=== PATIENT | male | born 1965 | race Caucasian/White ===

== ENCOUNTER 2019-01-22 11:28 | Observation (INO) | payer OTHER ==
--- NOTE | 2019-01-22 11:53 | PDOC ---
History of Present Illness - General Chief Complaint: Syncope/Near Syncope Stated Complaint: HEAD INJURY Time Seen by Provider: 01/22/19 11:47 Past History - Past Medical History Allergies/Adverse Reactions: Allergies Allergy/AdvReac Type Severity Reaction Status Date / Time No Known Allergies Allergy Verified 01/22/19 11:38 COPD: No HTN: Yes - Psycho Social/Smoking Cessation Hx Smoking History: Never smoked *Physical Exam - Vital Signs Last Vital Signs Temp Pulse Resp BP Pulse Ox 98 F 96 H 18 143/93 98 01/22/19 11:35 01/22/19 11:35 01/22/19 11:35 01/22/19 11:35 01/22/19 11:35
[2019-01-22 12:42] LABS: BASO % 2.2 % (0-2.0); EOS % 1.6 % (0-4.5); HEMATOCRIT 48.8 % (35.4-49); HEMOGLOBIN 17.8 GM/dL (11.7-16.9); LYMPH % 21.5 % (8-40); MCH 35.9 pg (25.7-33.7); MCHC 36.5 g/dl (32.0-35.9); MEAN CELL VOLUME 98.5 fl (80-96); MEAN PLT VOLUME 8.8 fl (7.5-11.1); MONO % 9.7 % (3.8-10.2); PLATELET COUNT 171 K/MM3 (134-434); RBC 4.96 M/mm3 (4.00-5.60); RDW 15.2 % (11.9-15.9); WHITE BLOOD COUNT 6.4 K/mm3 (4.0-10.0)
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
[2019-01-22 13:23] LABS: ALBUMIN 3.6 g/dl (3.4-5.0); ALK PHOS 124 U/L (45-117); ANION GAP 6 MMOL/L (8-16); BILIRUBIN,TOTAL 0.8 mg/dL (0.2-1); BLOOD UREA NITROGEN 8.8 mg/dL (7-18); CALCIUM 9.3 mg/dL (8.5-10.1); CHLORIDE 103 mmol/L (98-107); CO2 28 mmol/L (21-32); CREATININE 0.8 mg/dL (0.55-1.3); GLUCOSE,RANDOM 94 mg/dL (74-106); POTASSIUM 4.5 mmol/L (3.5-5.1); SGOT/AST 62 U/L (15-37); SGPT/ALT 55 U/L (13-61); SODIUM 137 mmol/L (136-145); TOT PROT 8.5 g/dl (6.4-8.2)
[2019-01-22 13:43] LABS: PHOSPHOROUS 2.4 mg/dL (2.5-4.9)
[2019-01-22] MEDS ORDERED: LACTATED RINGERS SOLUTION 1,000 ML/1,000 ML INFUS.BAG IV STA (13:49)
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
[2019-01-22] MEDS ORDERED: LIDOCAINE HCL 1%, 10 MG/ML (20ML VIAL) ONE ×2 (14:43→14:44)
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
[2019-01-22] MEDS ORDERED: SODIUM CHLORIDE 1,000 ML IV SCH (16:00)
[2019-01-22] MEDS ORDERED: ACETAMINOPHEN 325 MG TABLET (FP) PO PRN (16:17)
[2019-01-22] MEDS ORDERED: ALBUTEROL SO4 0.083% IH SOL 2.5 MG/3 ML VIAL.NEB. NEB PRN (16:19)
[2019-01-22] MEDS ORDERED: chlordiazePOXIDE HCL 25 MG CAPSULE PO PRN (16:20)
[2019-01-22 19:07] VITALS: BMI 30.9
[2019-01-22] MEDS: HEPARIN NA (PORCINE) 5,000 UNITS/ML 1ML VIAL SQ SCH (22:45)
[2019-01-23 06:19] LABS: HEMATOCRIT 46.1 % (35.4-49); HEMOGLOBIN 15.9 GM/dL (11.7-16.9); MCH 33.3 pg (25.7-33.7); MCHC 34.6 g/dl (32.0-35.9); MEAN CELL VOLUME 96.4 fl (80-96); MEAN PLT VOLUME 8.4 fl (7.5-11.1); PLATELET COUNT 138 K/MM3 (134-434); RBC 4.78 M/mm3 (4.00-5.60); RDW 14.6 % (11.9-15.9); WHITE BLOOD COUNT 4.2 K/mm3 (4.0-10.0)
[2019-01-23 07:43] LABS: BILIRUBIN,TOTAL 0.7 mg/dL (0.2-1); BLOOD UREA NITROGEN 9.8 mg/dL (7-18); CALCIUM 8.9 mg/dL (8.5-10.1); CREATININE 0.7 mg/dL (0.55-1.3); MAGNESIUM 1.9 mg/dL (1.8-2.4); POTASSIUM 4.2 mmol/L (3.5-5.1); TOT PROT 6.9 g/dl (6.4-8.2)
[2019-01-23] MEDS: HEPARIN NA (PORCINE) 5,000 UNITS/ML 1ML VIAL SQ SCH ×2 (10:49→21:23)
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
--- NOTE | 2019-01-23 17:07 | EKG ---
Test Reason : Blood Pressure : / mmHG Vent. Rate : 090 BPM Atrial Rate : 090 BPM P-R Int : 138 ms QRS Dur : 074 ms QT Int : 352 ms P-R-T Axes : 034 018 026 degrees QTc Int : 430 ms NORMAL SINUS RHYTHM NORMAL ECG NO PREVIOUS ECGS AVAILABLE Confirmed by KHLOE TORRES MD ([id number]) on 01/23/2019 5:06:49 PM Referred By: Confirmed By:KHLOE TORRES MD
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
[2019-01-23] MEDS ORDERED: guaiFENesin/D-METHORPHAN HB 10 ML UNIT-DOSE CUPS PO ONE (22:00)
[2019-01-24] MEDS: amLODIPine BESYLATE 2.5 MG TABLET (FP) PO SCH ×2 (08:42→10:37)
[2019-01-24] MEDS ORDERED: MAG HYDROX/AL HYDROX/SIMETH 30 ML UNIT-DOSE CUP PO PRN (08:44)
[2019-01-24 09:09] LABS: BASO % 0.8 % (0-2.0); EOS % 2.8 % (0-4.5); HEMATOCRIT 44.5 % (35.4-49); HEMOGLOBIN 15.6 GM/dL (11.7-16.9); LYMPH % 28.8 % (8-40); MCHC 35.1 g/dl (32.0-35.9); MEAN CELL VOLUME 99.7 fl (80-96); MEAN PLT VOLUME 9.1 fl (7.5-11.1); MONO % 10.8 % (3.8-10.2); NEUT % 56.8 % (42.8-82.8); PLATELET COUNT 145 K/MM3 (134-434); RBC 4.46 M/mm3 (4.00-5.60); RDW 14.8 % (11.9-15.9); WHITE BLOOD COUNT 4.6 K/mm3 (4.0-10.0)
[2019-01-24 09:35] LABS: BILIRUBIN,TOTAL 1.1 mg/dL (0.2-1); CALCIUM 9.1 mg/dL (8.5-10.1); CREATININE 0.7 mg/dL (0.55-1.3); POTASSIUM 4.1 mmol/L (3.5-5.1)
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
[2019-01-24] MEDS: HEPARIN NA (PORCINE) 5,000 UNITS/ML 1ML VIAL SQ SCH (10:41)
--- NOTE | 2019-01-24 10:42 | PN ---
Progress Note, Physician History of Present Illness: Denies recurrent near or true syncope. No events on telemetry. - Current Medication List Current Medications: Active Medications Acetaminophen (Tylenol -) 650 mg PO Q4H PRN PRN Reason: PAIN LEVEL 1-5 Last Admin: 01/22/19 20:10 Dose: 650 mg Albuterol Sulfate (Ventolin 0.083% Nebulizer Soln -) 1 amp NEB Q6H PRN PRN Reason: SHORT OF BREATH/WHEEZING Last Admin: 01/23/19 20:30 Dose: 1 amp Amlodipine Besylate (Norvasc -) 2.5 mg PO DAILY [facility] Last Admin: 01/24/19 10:37 Dose: Not Given Budesonide/Formoterol Fumarate (Symbicort 80/4.5mcg -) 2 puff IH BID [facility] Chlordiazepoxide HCl (Librium -) 25 mg PO Q6H PRN PRN Reason: WITHDRAWAL(CONT SUBST) Heparin Sodium (Porcine) (Heparin -) 5,000 unit SQ BID [facility] Last Admin: 01/24/19 10:41 Dose: 5,000 unit Sodium Chloride (Normal Saline -) 1,000 mls @ 75 mls/hr IV ASDIR [facility] Last Admin: 01/23/19 10:48 Dose: 75 mls/hr - Objective Vital Signs: Vital Signs Temperature 98.0 F 01/24/19 06:00 Pulse Rate 71 01/24/19 06:00 Respiratory Rate 20 01/24/19 06:00 Blood Pressure 142/70 01/24/19 06:00 O2 Sat by Pulse Oximetry (%) 99 01/23/19 21:00 Constitutional: Yes: No Distress, Calm Neck: Yes: Supple Cardiovascular: Yes: Regular Rate and Rhythm Respiratory: Yes: Regular, CTA Bilaterally Gastrointestinal: Yes: Normal Bowel Sounds, Soft Edema: No Labs: CBC, BMP 01/24/19 08:10 01/24/19 08:10 - ....Imaging Cat Scan: Report Reviewed (chest CT: Hepatic steatosis, coronary calcification, no infiltrates or effusions) Assessment/Plan - Problems (1) ETOH abuse Assessment/Plan: Nearly daily 7-8 beers "since I was 15 years old". Says he has been told by his brother he needs to quit. Contributes to pt's frequent syncopal episodes. Librium Detox protocol. F/u LFTs. Code(s): F10.10 - ALCOHOL ABUSE, UNCOMPLICATED (2) Laceration of head Code(s): S01.91XA - LACERATION W/O FOREIGN BODY OF UNSP PART OF HEAD, INIT (3) Tussive syncope Assessment/Plan: Telemetry: r/o arrhythmia. Pt says coughing always precedes the syncopal episodes, which have occurred several times this year. He is an alcoholic. EKG: NSR; normal study. F/u ECHO for LVEF, chamber sizes, valve status. Carotid artery US shows no sig stenosis Maintain hydration Orhostatic vital signs. Detox protocol, BD as needed, outpatient PFTs Code(s): R05 - COUGH (4) History of bilateral knee arthroplasty Assessment/Plan: "metal in both knees" for "arthritis". Code(s): Z96.653 - PRESENCE OF ARTIFICIAL KNEE JOINT, BILATERAL (5) CAD with coronary calcifications Norvasc 2.5 qd as tolerated, add ASA 81 qd
[2019-01-24] MEDS ORDERED: BUDESONIDE/FORMETEROL FUMARATE 80/4.5 mcg INHALER IH SCH (11:00)
[2019-01-24] MEDS ORDERED: PT OWN MED DRAWER 7, Y5N ONE (11:05)
--- NOTE | 2019-01-24 12:29 | ECHO ---
Name: MARIMAR CURRAN Exam:Adult Echocardiogram Study Date: 01/24/2019 08:50 AM Age: 53 yrs Reason For Study: SYNCOPE Height: 67 in Weight: 200 lb BSA: 2.0 m2 MMode/2D Measurements & Calculations IVSd: 1.1 cm Ao root diam: 2.7 cm LVIDd: 4.5 cm LA dimension: 3.6 cm LVIDs: 3.5 cm LVPWd: 1.1 cm EDV(Teich): 91.7 ml LVOT diam: 2.0 cm ESV(Teich): 49.9 ml LAV (MOD-bp): 29.4 ml Doppler Measurements & Calculations MV E max doug: 65.5 cm/sec Ao V2 max: 133.0 cm/sec MV A max doug: 80.5 cm/sec Ao max P.1 mmHg MV E/A: 0.81 MV dec time: 0.15 sec NELLY(V,D): 2.0 cm2 LV V1 max P.9 mmHg TR max doug: 192.7 cm/sec LV V1 max: 85.4 cm/sec TR max P.9 mmHg PA V2 max: 108.6 cm/sec Med Peak E' Doug: 7.2 cm/sec PA max P.7 mmHg Med E/e': 9.1 Lat Peak E' Doug: 9.6 cm/sec Lat E/e': 6.8 PI Vmax: 103.2 cm/sec Procedure A complete two-dimensional transthoracic echocardiogram was performed (2D, M-mode, Doppler and color flow Doppler). Technically limited study. Left Ventricle The left ventricle is normal in size. Left ventricular systolic function is low normal. Ejection Frac tion = 50-55%. No regional wall motion abnormalities noted. Right Ventricle The right ventricle is not well visualized. Atria The left atrial size is normal. Right atrial size is normal. Mitral Valve The mitral valve is normal in structure and function. There is no mitral regurgitation noted. Tricuspid Valve The tricuspid valve is normal in structure and function. No tricuspid regurgitation. Aortic Valve There is mild aortic sclerosis.;. No aortic regurgitation is present. Pulmonic Valve The pulmonic valve is not well visualized. Great Vessels The aortic root is normal size. Pericardium/Pleura Small pericardial effusion (<1cm). Interpretation Summary The left ventricle is normal in size. Left ventricular systolic function is low normal. No regional wall motion abnormalities noted. Ejection Fraction = 50-55%. The left atrial size is normal. Right atrial size is normal. There is mild aortic sclerosis. No significant valvular regurgitations are ssen Small pericardial effusion (<1cm) Prevous study is not available for comparison Pedro Lion MD 01/24/2019 12:28 PM
--- NOTE | 2019-01-24 14:10 | PN ---
Physical Exam: SUBJECTIVE: Patient seen and examined OBJECTIVE: ct with extensive atherosclerotic coronary artery calcifications - LAD coronary artery Vital Signs Period Temp Pulse Resp BP Sys/Tran Pulse Ox Last 24 Hr 98.0 F-98.7 F 71-76 20-20 135-148/70-102 99 Laboratory Results - last 24 hr 01/24/19 01/24/19 08:10 08:10 WBC 4.6 RBC 4.46 Hgb 15.6 Hct 44.5 MCV 99.7 H MCH 35.0 H MCHC 35.1 RDW 14.8 Plt Count 145 MPV 9.1 Absolute Neuts (auto) 2.6 Neutrophils % 56.8 Lymphocytes % 28.8 D Monocytes % 10.8 H Eosinophils % 2.8 Basophils % 0.8 Nucleated RBC % 0 Sodium 137 Potassium 4.1 Chloride 105 Carbon Dioxide 26 Anion Gap 6 L BUN 10.0 Creatinine 0.7 Est GFR (CKD-EPI)AfAm 123.13 Est GFR (CKD-EPI)NonAf 106.24 Random Glucose 88 Calcium 9.1 Magnesium 2.0 Total Bilirubin 1.1 H AST 40 H ALT 46 Alkaline Phosphatase 101 Total Protein 7.0 Albumin 3.0 L Active Medications Generic Name Dose Route Start Last Admin Trade Name Freq PRN Reason Stop Dose Admin Acetaminophen 650 mg 01/22/19 16:17 01/22/19 20:10 Tylenol - PO 650 mg Q4H PRN Administration PAIN LEVEL 1-5 Albuterol Sulfate 1 amp 01/22/19 16:19 01/23/19 20:30 Ventolin 0.083% Nebulizer Soln - NEB 1 amp Q6H PRN Administration SHORT OF BREATH/WHEEZING Amlodipine Besylate 2.5 mg 01/24/19 10:00 01/24/19 10:37 Norvasc - PO Not Given DAILY [facility] Budesonide/Formoterol Fumarate 2 puff 01/24/19 11:00 01/24/19 11:06 Symbicort 80/4.5mcg - IH 2 puff BID [facility] Administration Chlordiazepoxide HCl 25 mg 01/22/19 16:20 Librium - PO Q6H PRN WITHDRAWAL(CONT SUBST) Heparin Sodium (Porcine) 5,000 unit 01/22/19 22:00 01/24/19 10:41 Heparin - SQ 5,000 unit BID [facility] Administration Sodium Chloride 1,000 mls @ 75 mls/hr 01/22/19 16:00 01/23/19 10:48 Normal Saline - IV 75 mls/hr [facility] Administration ASSESSMENT/PLAN: Problem List - Problems (1) ETOH abuse Code(s): F10.10 - ALCOHOL ABUSE, UNCOMPLICATED (2) Syncope and collapse Code(s): R55 - SYNCOPE AND COLLAPSE (3) Tussive syncope Code(s): R05 - COUGH (4) Prophylactic measure Code(s): Z29.9 - ENCOUNTER FOR PROPHYLACTIC MEASURES, UNSPECIFIED (5) Laceration of head Code(s): S01.91XA - LACERATION W/O FOREIGN BODY OF UNSP PART OF HEAD, INIT
[2019-01-24] MEDS ORDERED: metoPROLOL SUCCINATE 25 MG TAB.SR.24H (FP) PO SCH (15:15)
[2019-01-24] MEDS ORDERED: ASPIRIN COATED 81 MG TABLET.EC PO SCH (15:15)
--- NOTE | 2019-01-24 15:41 | DS ---
Physical Exam: SUBJECTIVE: Patient seen and examined OBJECTIVE: Vital Signs Period Temp Pulse Resp BP Sys/Tran Pulse Ox Last 24 Hr 98.0 F-98.7 F 71-78 20-20 135-157/70-111 97-99 PHYSICAL EXAM GENERAL: The patient is awake, alert, and fully oriented, in no acute distress. HEAD: Normal with no signs of trauma. EYES: PERRL, extraocular movements intact, sclera anicteric, conjunctiva clear. ENT: Ears normal, nares patent, oropharynx clear without exudates, moist mucous membranes. NECK: Trachea midline, full range of motion, supple. LUNGS: Breath sounds equal, clear to auscultation bilaterally, no wheezes, no crackles, no accessory muscle use. HEART: Regular rate and rhythm, S1, S2 without murmur, rub or gallop. ABDOMEN: Soft, nontender, nondistended, normoactive bowel sounds, no guarding, no rebound, no hepatosplenomegaly, no masses. EXTREMITIES: 2+ pulses, warm, well-perfused, no edema. NEUROLOGICAL: Cranial nerves II through XII grossly intact. Normal speech, gait not observed. PSYCH: Normal mood, normal affect. SKIN: Warm, dry, normal turgor, no rashes or lesions noted. LABS Laboratory Results - last 24 hr 01/24/19 01/24/19 08:10 08:10 WBC 4.6 RBC 4.46 Hgb 15.6 Hct 44.5 MCV 99.7 H MCH 35.0 H MCHC 35.1 RDW 14.8 Plt Count 145 MPV 9.1 Absolute Neuts (auto) 2.6 Neutrophils % 56.8 Lymphocytes % 28.8 D Monocytes % 10.8 H Eosinophils % 2.8 Basophils % 0.8 Nucleated RBC % 0 Sodium 137 Potassium 4.1 Chloride 105 Carbon Dioxide 26 Anion Gap 6 L BUN 10.0 Creatinine 0.7 Est GFR (CKD-EPI)AfAm 123.13 Est GFR (CKD-EPI)NonAf 106.24 Random Glucose 88 Calcium 9.1 Magnesium 2.0 Total Bilirubin 1.1 H AST 40 H ALT 46 Alkaline Phosphatase 101 Total Protein 7.0 Albumin 3.0 L HOSPITAL COURSE: Date of Admission:01/22/19 Date of Discharge: 01/24/19 Discharge Summary Problems reviewed: Yes Reason For Visit: SYNCOPE AND COLLAPSE Current Active Problems ETOH abuse (Acute) History of bilateral knee arthroplasty (Acute) Laceration of head (Acute) Prophylactic measure (Acute) Syncope and collapse (Acute) Tussive syncope (Acute) Condition: Improved - Instructions Diet, Activity, Other Instructions: Mr. Holbrook: You will be discharged home today. You were admitted for syncope (falls) and you obtained a head laceration. Please see your primary care doctor for removal of your stables in 7 more days. You can also return to the ED and have them removed. During your stay we did a chest CT that showed extensive athresclerotic disease in your left coronary artery. What is athresclerotic disease? It is build up o cholesterol plaque in the [place] of the arteries that obstruct blood flow. You will be sent home with Aspirin 81mg ONCE per day, Lipitor 80mg ONCE per day and Toprol 25mg once per day YOU WILL NEED A STRESS TEST. CALL DR CORDON TO ARRANGE ONE. HIS OFFICE NUMBER IS ENCLOSED. Please follow up with the pulmonoloigst (Dr. Mallory). There is help for your alcohol drinking. Please follow up at [facility]. Information enclosed. Thank you for allowing us to care for you. Referrals: Anmol Mallory MD [Staff Physician] - Ananth Cordon MD [Staff Physician] - Tori Fortune DO [Staff Physician] - Disposition: HOME - Home Medications Comprehensive Discharge Medication List: Ambulatory Orders Aspirin Coated [Ecotrin -] 81 mg PO DAILY #120 tablet.ec 01/24/19 Atorvastatin Calcium 80 mg PO DAILY #120 tablet 01/24/19 Budesonide/Formeterol Fumarate [SYMBICORT 80/4.5mcg -] 2 puff IH BID #1 inhaler 01/24/19 Problem List - Problems (1) ETOH abuse Code(s): F10.10 - ALCOHOL ABUSE, UNCOMPLICATED (2) Syncope and collapse Code(s): R55 - SYNCOPE AND COLLAPSE (3) Tussive syncope Code(s): R05 - COUGH (4) Prophylactic measure Code(s): Z29.9 - ENCOUNTER FOR PROPHYLACTIC MEASURES, UNSPECIFIED (5) Laceration of head Code(s): S01.91XA - LACERATION W/O FOREIGN BODY OF UNSP PART OF HEAD, INIT - Discharge Referral Referred to [facility] No
[2019-01-24 15:48] VITALS: PULSE 95; TEMP 98.7
[2019-01-24 16:30] VITALS: BP 125/93
== END 2019-01-24 16:31 | disposition home or self-care (01) ==
LOC: JER 11:28 → JERBED 13:19 → J4W 19:36
PROVIDERS: ADMIT Internal Medicine; ATTEND Nurse Practitioner Family
PROC: 0HQ0XZZ Repair Scalp Skin, External Approach (ICD-10-PCS; principal; 2019-01-22)
PROC: 3E0337Z Introduction of Electrolytic and Water Balance Substance into Peripheral Vein, Percutaneous Approach (ICD-10-PCS; 2019-01-22)
PROC: 3E013GC Introduction of Other Therapeutic Substance into Subcutaneous Tissue, Percutaneous Approach (ICD-10-PCS; 2019-01-22)
PROC: 3E0F7GC Introduction of Other Therapeutic Substance into Respiratory Tract, Via Natural or Artificial Opening (ICD-10-PCS; 2019-01-22)
DX: R55 Syncope and collapse (principal); S01.91XA Laceration without foreign body of unspecified part of head, initial encounter; W18.39XA Other fall on same level, initial encounter; Y93.89 Activity, other specified; Y92.89 Other specified places as the place of occurrence of the external cause; R05 Cough; I10 Essential (primary) hypertension; F10.10 Alcohol abuse, uncomplicated; Z29.8 Encounter for other specified prophylactic measures; Z96.653 Presence of artificial knee joint, bilateral; Z87.828 Personal history of other (healed) physical injury and trauma
CPT/HCPCS: 12002-25; 36415; 70450-TC; 71046-TC-FY; 71250-TC; 72125-TC; 80053; 80061; 82550; 82553; 82607; 82746; 83721; 83735; 84100; 84443; 84484; 85025; 85027; 93005; 93010; 93306-TC; 93880-TC; 94640; 96360; 96372; 99283-25; G0378; J1644; J7030

== ENCOUNTER 2019-01-28 11:09 | Emergency (ER) | payer OTHER ==
--- NOTE | 2019-01-28 11:30 | PDOC ---
Rapid Medical Evaluation Medical Evaluation: Allergies Allergy/AdvReac Type Severity Reaction Status Date / Time No Known Allergies Allergy Verified 01/22/19 11:38 I have performed a brief in-person evaluation of this patient. The patient presents with a chief complaint of: here for vijaya removal from posterior scalp; had vijaya last week Pertinent physical exam findings: In nad, wound healed I have ordered the following: Nothing The patient will proceed to the ED for further evaluation. 01/28/19 11:30
[2019-01-28 11:32] VITALS: BP 142/86; PULSE 99; TEMP 98; BMI 29.7
--- NOTE | 2019-01-28 11:41 | PDOC ---
Suture Removal/Wound Check HPI - History of Present Illness Chief Complaint: Suture/Staple Removal(Here) Stated Complaint: STICHES REMOVAL Time Seen by Provider: 01/28/19 11:29 History Source: Yes: Patient Exam Limitations: Yes: No Limitations Past History - Past Medical History Allergies/Adverse Reactions: Allergies Allergy/AdvReac Type Severity Reaction Status Date / Time No Known Allergies Allergy Verified 01/28/19 11:32 Home Medications: Ambulatory Orders Aspirin Coated [Ecotrin -] 81 mg PO DAILY #120 tablet.ec 01/24/19 Atorvastatin Calcium 80 mg PO DAILY #120 tablet 01/24/19 Budesonide/Formeterol Fumarate [SYMBICORT 80/4.5mcg -] 2 puff IH BID #1 inhaler 01/24/19 COPD: No HTN: Yes - Surgical History Orthopedic Surgery: (b/l knee repair with metal plates) - Psycho Social/Smoking Cessation Hx Smoking History: Never smoked Hx Alcohol Use: Yes (6-7 beers a day) Drug/Substance Use Hx: No Suture Removal/Wound Check PE - Physical Exam Laceration/Wound Check Symptoms: reports: None, Improved, Resolved. denies: Pain, Fever, Chills, Redness, Discharge, Bleeding Location of Laceration/Wound: left: Head (L posterior scalp, wound healed well) *Physical Exam - Vital Signs Last Vital Signs Temp Pulse Resp BP Pulse Ox 98 F 99 H 18 142/86 99 01/28/19 11:29 01/28/19 11:29 01/28/19 11:29 01/28/19 11:29 01/28/19 11:29 Medical Decision Making - Medical Decision Making 53 y/o M presents for staple removal s/p lac repair to posterior scalp last week. Patient denies pain, fever, discharge. States is otherwise feeling well and has no new complaints 5 vijaya removed stable for dc 01/28/19 11:39 Discharge - Discharge Information Problems reviewed: Yes Clinical Impression/Diagnosis: Removal of staple Condition: Good Disposition: HOME - Admission No - Additional Discharge Information Prescription Drug Monitoring Program (I-STOP) results: I-STOP not reviewed - Follow up/Referral - Patient Discharge Instructions Patient Printed Discharge Instructions: DI for Suture Removal - Post Discharge Activity
== END 2019-01-28 11:52 | disposition home or self-care (01) ==
LOC: JERFT 11:09
DX: Z48.817 Encounter for surgical aftercare following surgery on the skin and subcutaneous tissue (principal); Z48.02 Encounter for removal of sutures
CPT/HCPCS: 99281-25

== ENCOUNTER 2019-04-01 10:09 | Emergency (ER) | payer OTHER ==
[2019-04-01 10:18] VITALS: BP 160/100; PULSE 102; TEMP 98.1; BMI 29.7
--- NOTE | 2019-04-01 10:56 | PDOC ---
History of Present Illness - General Chief Complaint: Rash Stated Complaint: EAR PAIN/ LOWER AND LEG RASH Time Seen by Provider: 04/01/19 10:20 History Source: Patient Exam Limitations: No Limitations Past History - Travel Traveled outside of the country in the last 30 days: No Close contact w/someone who was outside of country & ill: No - Past Medical History Allergies/Adverse Reactions: Allergies Allergy/AdvReac Type Severity Reaction Status Date / Time No Known Allergies Allergy Verified 04/01/19 10:14 Home Medications: Ambulatory Orders Ciprofloxacin HCl/Dexameth [Ciprodex Otic Suspension] 4 drop OD BID #1 bottle Nystatin/Triamcinolone Top Cr [Mycolog II -] 1 applic TP BID #1 tube 04/01/19 COPD: No HTN: Yes - Surgical History Orthopedic Surgery: (b/l knee repair with metal plates) - Psycho Social/Smoking Cessation Hx Smoking History: Never smoked Hx Alcohol Use: Yes (6-7 DAILY) Drug/Substance Use Hx: No Review of Systems - Review of Systems Able to Perform ROS?: Yes Comments:: 04/01/19 15:03 CONSTITUTIONAL: Absent: fever, chills, diaphoresis, generalized weakness, malaise, loss of appetite HEENT: Present: Right ear pain absent: rhinorrhea, nasal congestion, throat pain, throat swelling, difficulty swallowing, mouth swelling, ear pain, eye pain, visual Changes SKIN: Present: Rash Absent: itching, pallor NEUROLOGIC: Absent: headache, focal weakness or paresthesias, dizziness, unsteady gait, seizure, mental status changes, bladder or bowel incontinence PSYCHIATRIC: Absent: anxiety, depression, suicidal or homicidal ideation, hallucinations. Is the patient limited Togolese proficient: No *Physical Exam - Vital Signs Last Vital Signs Temp Pulse Resp BP Pulse Ox 98.1 F 102 H 18 160/100 100 04/01/19 10:14 04/01/19 10:14 04/01/19 10:14 04/01/19 10:14 04/01/19 10:14 - Physical Exam 04/01/19 15:05 GENERAL: The patient is awake, alert, and fully oriented, in no acute distress. HEAD: Normal with no signs of trauma. EYES: Pupils equal, round and reactive to light, extraocular movements intact, sclera anicteric, conjunctiva clear. HEENT: No nasal congestion or rhinorrhea. No sinus Tenderness. Mucous membranes are moist. No tonsillar erythema, exudate or edema. Uvula is midline. No TM bulging , dullness or erythema. Right ear canal with minimal otorrhea. EXTREMITIES: Normal range of motion, no edema. NEUROLOGICAL: Normal speech, normal gait. PSYCH: Normal mood, normal affect. SKIN: Circular rashes present to the right hip into the right groin, flaking. Warm, Dry, normal turgor, no rashes or lesions noted. Medical Decision Making - Medical Decision Making 04/01/19 15:06 The patient is a 53-year-old male no past medical history presents the ER today with right ear pain and a rash to his right leg. He states both have been there for about a month. He notes that his ear is painful and it hurts to touch the tragus. His rashes on his right leg extending into his right groin. He has not tried any medication for the rash. Denies fevers, chills, difficulty hearing, sore throat. A/P: Rash, otitis externa. On exam patient with a clinical otitis externa in the right ear canal. Will treat with medicated drops. Rash is circular in nature from the groin to the right hip. Consistent with a jock itch rash. We will treat with an antifungal cream. Refer patient to primary care for further management of his symptoms. Discharge home I discussed the physical exam findings, ancillary test results and final diagnoses with the patient. I answered all of the patient's questions. The patient was satisfied with the care received and felt comfortable with the discharge plan and treatment plan. The Patient agrees to follow up with the primary care physician/specialist within 24-72 hours. Return precautions were given. Discharge - Discharge Information Problems reviewed: Yes Clinical Impression/Diagnosis: Jock itch Otitis externa Qualifiers: Otitis externa type: unspecified type Chronicity: acute Laterality: right Qualified Code(s): H60.501 - Unspecified acute noninfective otitis externa, right ear Condition: Stable Disposition: HOME - Admission No - Additional Discharge Information Prescriptions: Ciprofloxacin HCl/Dexameth [Ciprodex Otic Suspension] 4 drop OD BID #1 bottle Nystatin/Triamcinolone Top Cr [Mycolog II -] 1 applic TP BID #1 tube - Follow up/Referral Referrals: Arnulfo Green [Primary Care Provider] - - Patient Discharge Instructions Patient Printed Discharge Instructions: DI for Otitis Externa, DI for Jock Itch Additional Instructions: You were seen for your rash and ear pain today. You have an infection of the ear canal. Please use the eardrops as directed to help with the pain. You may take Motrin as well. Follow the directions on the bottle. You also have jock itch or a fungal rash on your leg. Please use the cream twice a day until your symptoms go away. If it is not improving please follow-up with dermatology. Referral has been provided. Return to the ER for any new or worsening symptoms. - Post Discharge Activity Work/Back to School Note: Back to Work
== END 2019-04-01 11:08 | disposition home or self-care (01) ==
LOC: JERFT 10:09
DX: H60.501 Unspecified acute noninfective otitis externa, right ear (principal); B35.6 Tinea cruris
CPT/HCPCS: 99282-25

== ENCOUNTER 2020-01-24 11:04 | Emergency (ER) | payer BC, OTHER ==
[2020-01-24 11:12] VITALS: BP 166/100; PULSE 100; TEMP 98.9; BMI 34.4
[2020-01-24] MEDS ORDERED: IBUPROFEN 600 MG TABLET (FP) PO ONE ×2 (12:04→12:07)
== END 2020-01-24 12:48 | disposition home or self-care (01) ==
LOC: JERFT 11:04
DX: S89.91XA Unspecified injury of right lower leg, initial encounter (principal)
CPT/HCPCS: 73562-TC-RT-FY; 99283-25

== ENCOUNTER 2020-06-06 18:16 | Inpatient (IN) | payer BC, OTHER ==
[2020-06-06 18:45] VITALS: BMI 34.9
[2020-06-06] MEDS ORDERED: LACTATED RINGERS SOLUTION 1000 ML INFUS.BAG IV ONE (19:20)
[2020-06-06] MEDS ORDERED: ACETAMINOPHEN 1000 MG/100 ML VIAL (NON FORMULARY) IVPB ONE (19:20)
[2020-06-06] MEDS ORDERED: ACETAMINOPHEN INJECTION 100 ML IVPB ONE (19:32)
[2020-06-06 20:35] LABS: INR 1.15 (0.83-1.09); PROTHROMBIN TIME (PATIENT) 14.1 SEC (9.7-13.0)
[2020-06-06 20:51] LABS: CHLORIDE 105 mmol/L (98-107); POTASSIUM 3.7 mmol/L (3.5-5.1); SODIUM 137 mmol/L (136-145)
[2020-06-06 20:53] LABS: ANION GAP 8 MMOL/L (8-16); BLOOD UREA NITROGEN 10.2 mg/dL (7-18); CO2 25 mmol/L (21-32); GLUCOSE,RANDOM 91 mg/dL (74-106)
[2020-06-06 20:54] LABS: ALBUMIN 3.4 g/dl (3.4-5.0)
[2020-06-06 20:56] LABS: SGPT/ALT 52 U/L (13-61)
[2020-06-06 20:57] LABS: CREATININE 0.8 mg/dL (0.55-1.3); SGOT/AST 48 U/L (15-37)
[2020-06-06 20:58] LABS: BILIRUBIN,TOTAL 0.4 mg/dL (0.2-1); TOT PROT 7.9 g/dl (6.4-8.2)
[2020-06-06 20:59] LABS: ALK PHOS 125 U/L (45-117)
[2020-06-06 21:01] LABS: N-TERMINAL BNP 29.3 pg/ml (5-125)
[2020-06-06 21:17] LABS: BASO % 0.7 % (0-2.0); EOS % 1.6 % (0-4.5); HEMATOCRIT 46.5 % (35.4-49); HEMOGLOBIN 15.5 GM/dL (11.7-16.9); LYMPH % 33.2 % (8-40); MCH 33.7 pg (25.7-33.7); MCHC 33.3 g/dl (32.0-35.9); MONO % 10.9 % (3.8-10.2); NEUT % 53.6 % (42.8-82.8); PLATELET COUNT 105 K/MM3 (134-434); RBC 4.61 M/mm3 (4.00-5.60); RDW 14.5 % (11.9-15.9); WHITE BLOOD COUNT 5.7 K/mm3 (4.0-10.0)
[2020-06-07] MEDS ORDERED: guaiFENesin 600 MG TABLET.ER (FP) PO SCH (06:00)
[2020-06-07 06:52] LABS: POTASSIUM 4.1 mmol/L (3.5-5.1)
[2020-06-07 06:56] LABS: ALBUMIN 3.1 g/dl (3.4-5.0); CALCIUM 9.1 mg/dL (8.5-10.1)
[2020-06-07 06:57] LABS: BLOOD UREA NITROGEN 8.3 mg/dL (7-18)
[2020-06-07 07:00] LABS: CREATININE 0.8 mg/dL (0.55-1.3)
[2020-06-07 07:01] LABS: BILIRUBIN,TOTAL 0.5 mg/dL (0.2-1); TOT PROT 7.3 g/dl (6.4-8.2)
[2020-06-07 07:17] LABS: BASO % 0.9 % (0-2.0); EOS % 2.6 % (0-4.5); HEMATOCRIT 43.4 % (35.4-49); HEMOGLOBIN 15.4 GM/dL (11.7-16.9); LYMPH % 30.7 % (8-40); MCH 35.6 pg (25.7-33.7); MCHC 35.5 g/dl (32.0-35.9); MEAN CELL VOLUME 100.3 fl (80-96); MEAN PLT VOLUME 9.3 fl (7.5-11.1); MONO % 14.4 % (3.8-10.2); NEUT % 51.4 % (42.8-82.8); PLATELET COUNT 117 K/MM3 (134-434); RBC 4.32 M/mm3 (4.00-5.60); RDW 14.4 % (11.9-15.9); WHITE BLOOD COUNT 4.5 K/mm3 (4.0-10.0)
[2020-06-07 07:40] VITALS: BP 150/85; PULSE 89; TEMP 97.7
[2020-06-07] MEDS ORDERED: THIAMINE HCL 100 MG TABLET (FP) PO SCH (10:00)
[2020-06-07] MEDS ORDERED: THIAMINE HCL 100 MG TABLET (FP) ONE (12:08)
== END 2020-06-07 12:20 | disposition left against medical advice (07) | DRG 312 ==
LOC: JER 18:16 → JERBED 22:03 → OBSVTOIN 06-07 00:09
PROVIDERS: ADMIT Internal Medicine; ATTEND Internal Medicine
DX: R55 Syncope and collapse (principal); F10.10 Alcohol abuse, uncomplicated; I10 Essential (primary) hypertension; S00.03XA Contusion of scalp, initial encounter; W18.39XA Other fall on same level, initial encounter; Y92.89 Other specified places as the place of occurrence of the external cause
CPT/HCPCS: 36415; 70450-TC; 71045-TC-FY; 72125-TC; 80053; 80307; 82550; 82553; 82607; 83880; 84484; 85025; 85610; 85730; 93005; 93010; 93306-TC; 93880-TC; 99285-25; C9803; G0378; J0131; U0003; U0005

== ENCOUNTER 2020-09-11 07:56 | Observation (INO) | payer BC, OTHER ==
[2020-09-11] MEDS ORDERED: ONDANSETRON 4 MG/2 ML VIAL IVPUSH ONE (08:32)
[2020-09-11] MEDS ORDERED: ONDANSETRON 4 MG/2 ML VIAL ONE (08:50)
[2020-09-11] MEDS ORDERED: LORazepam 2 MG/ML SDV VIAL IVPUSH ONE (09:05)
[2020-09-11] MEDS ORDERED: LORazepam 2 MG/ML SDV VIAL ONE (09:14)
[2020-09-11] MEDS ORDERED: MAG HYDROX/AL HYDROX/SIMETH 30 ML UNIT-DOSE CUP PO ONE (09:38)
[2020-09-11] MEDS ORDERED: SUCRALFATE 1 GM/10 ML UNIT DOSE CUPS PO ONE (09:38)
[2020-09-11] MEDS ORDERED: FAMOTIDINE 10 MG TABLET PO ONE (09:38)
[2020-09-11] MEDS ORDERED: SODIUM CHLORIDE 0.9% 500 ML INFUS.BAG IV ONE (09:41)
[2020-09-11 09:46] LABS: CHLORIDE 105 mmol/L (98-107); SODIUM 139 mmol/L (136-145)
[2020-09-11 09:47] LABS: CALCIUM 8.7 mg/dL (8.5-10.1)
[2020-09-11 09:48] LABS: ALBUMIN 3.5 g/dl (3.4-5.0); ANION GAP 8 MMOL/L (8-16); BLOOD UREA NITROGEN 7.6 mg/dL (7-18); CO2 26 mmol/L (21-32); GLUCOSE,RANDOM 123 mg/dL (74-106)
[2020-09-11 09:49] LABS: LIPASE 143 U/L (73-393)
[2020-09-11] MEDS ORDERED: FAMOTIDINE 10 MG TABLET ONE (09:51)
[2020-09-11] MEDS ORDERED: MAG HYDROX/AL HYDROX/SIMETH 30 ML UNIT-DOSE CUP ONE (09:51)
[2020-09-11] MEDS ORDERED: SUCRALFATE 1 GM TABLET (FP) ONE (09:51)
[2020-09-11 09:52] LABS: CREATININE 0.6 mg/dL (0.55-1.3); SGOT/AST 40 U/L (15-37); SGPT/ALT 48 U/L (13-61)
[2020-09-11 09:53] LABS: BILIRUBIN,TOTAL 0.5 mg/dL (0.2-1)
[2020-09-11 09:54] LABS: ALK PHOS 254 U/L (45-117); TOT PROT 7.8 g/dl (6.4-8.2)
[2020-09-11] MEDS ORDERED: POTASSIUM CHLORIDE TABS 20 MEQ TABLET.ER (FP) PO ONE ×2 (09:54→11:19)
[2020-09-11 09:59] LABS: BASO % 0.3 % (0-2.0); EOS % 0.5 % (0-4.5); HEMATOCRIT 39.9 % (35.4-49); HEMOGLOBIN 13.6 GM/dL (11.7-16.9); LYMPH % 15.3 % (8-40); MCH 31.6 pg (25.7-33.7); MEAN PLT VOLUME 8.6 fl (7.5-11.1); MONO % 7.2 % (3.8-10.2); NEUT % 76.7 % (42.8-82.8); PLATELET COUNT 111 10^3/uL (134-434); RBC 4.29 M/mm3 (4.00-5.60); WHITE BLOOD COUNT 5.5 K/mm3 (4.0-10.0)
[2020-09-11] MEDS ORDERED: ASPIRIN 81 MG CHEWABLE TABLETS PO ONE (12:39)
[2020-09-11] MEDS ORDERED: ASPIRIN 81 MG CHEWABLE TABLETS ONE (13:09)
[2020-09-11] MEDS ORDERED: FOLIC ACID INJECTION - 1 MG, THIAMINE HCL 100 MG, MULTIVIT INJECTION ADULT 10 ML in SOD... IVPB ONE (13:46)
[2020-09-11] MEDS ORDERED: LORazepam 1 MG TABLET PO PRN (13:49)
[2020-09-11] MEDS: ENALAPRIL MALEATE 10 MG TABLET PO SCH (14:35)
[2020-09-11] MEDS ORDERED: ENALAPRIL MALEATE 5 MG TABLET ONE (14:37)
[2020-09-11] MEDS ORDERED: ATORVASTATIN CA 40 MG TABLET (FP) ONE (21:44)
[2020-09-11] MEDS ORDERED: ATORVASTATIN CA 40 MG TABLET (FP) PO SCH (22:00)
[2020-09-12 02:49] VITALS: BMI 32.5
[2020-09-12 07:58] LABS: ALBUMIN 3.1 g/dl (3.4-5.0); CALCIUM 8.8 mg/dL (8.5-10.1); MAGNESIUM 1.8 mg/dL (1.8-2.4)
[2020-09-12 07:59] LABS: BLOOD UREA NITROGEN 8.4 mg/dL (7-18)
[2020-09-12 08:02] LABS: CREATININE 0.7 mg/dL (0.55-1.3)
[2020-09-12 08:03] LABS: TOT PROT 6.9 g/dl (6.4-8.2)
[2020-09-12 08:04] LABS: BILIRUBIN,TOTAL 0.6 mg/dL (0.2-1)
[2020-09-12 08:37] VITALS: BP 131/77; PULSE 98; TEMP 98.2
[2020-09-12 09:11] LABS: BASO % 0.5 % (0-2.0); EOS % 4.6 % (0-4.5); HEMOGLOBIN 12.4 GM/dL (11.7-16.9); LYMPH % 28.3 % (8-40); MCH 31.6 pg (25.7-33.7); MCHC 33.6 g/dl (32.0-35.9); MEAN CELL VOLUME 94.1 fl (80-96); MEAN PLT VOLUME 9.1 fl (7.5-11.1); MONO % 9.9 % (3.8-10.2); NEUT % 56.7 % (42.8-82.8); PLATELET COUNT 107 10^3/uL (134-434); RBC 3.93 M/mm3 (4.00-5.60); RDW 15.1 % (11.9-15.9); WHITE BLOOD COUNT 4.6 K/mm3 (4.0-10.0)
[2020-09-12] MEDS: ENALAPRIL MALEATE 10 MG TABLET PO SCH (09:43)
[2020-09-12] MEDS ORDERED: ENOXAPARIN NA (PORCINE) 40 MG/0.4 ML DISP.SYRIN SQ SCH (10:00)
[2020-09-12] MEDS ORDERED: ASPIRIN COATED 81 MG TABLET.EC PO SCH ×2 (10:00)
[2020-09-12] MEDS ORDERED: MULTIVITAMINS (DAILY MVI) TABLET (FP) PO SCH (10:00)
[2020-09-12] MEDS ORDERED: THIAMINE HCL 200 MG/2 ML VIAL IVPB SCH (10:00)
[2020-09-12] MEDS ORDERED: FOLIC ACID 1 MG TABLET (FP) PO SCH (10:00)
== END 2020-09-12 11:54 | disposition home or self-care (01) ==
LOC: JER 07:56 → JERBED 12:15 → J4W 09-12 01:56
PROVIDERS: ATTEND Internal Medicine
PROC: 3E033GC Introduction of Other Therapeutic Substance into Peripheral Vein, Percutaneous Approach (ICD-10-PCS; principal; 2020-09-11)
PROC: 3E0337Z Introduction of Electrolytic and Water Balance Substance into Peripheral Vein, Percutaneous Approach (ICD-10-PCS; 2020-09-11)
DX: F10.139 Alcohol abuse with withdrawal, unspecified (principal); I10 Essential (primary) hypertension; R51.9 Headache, unspecified; R07.9 Chest pain, unspecified; E78.5 Hyperlipidemia, unspecified; Z29.9 Encounter for prophylactic measures, unspecified
CPT/HCPCS: 36415; 71045-TC-FY; 76705-TC; 80053; 80061; 82962; 83036; 83690; 83721; 83735; 84484; 85025; 93005; 93010; 96361; 96365; 97116-GP; 97161-GP; 99285-25; C9803; G0378; U0003; U0005

== ENCOUNTER 2021-02-15 00:24 | Inpatient (IN) | payer BC, OTHER ==
[2021-02-15] MEDS ORDERED: morphine CARPU-JECT 4 MG/1 ML DISP.SYRIN IVPUSH ONE (01:00)
[2021-02-15] MEDS ORDERED: ONDANSETRON 4 MG/2 ML VIAL IVPUSH ONE (01:00)
[2021-02-15] MEDS ORDERED: LACTATED RINGERS SOLUTION 1000 ML INFUS.BAG IV ONE ×2 (01:00→03:10)
[2021-02-15] MEDS ORDERED: morphine SULFATE 4 MG/ML VIAL ONE ×3 (01:05→08:29)
[2021-02-15] MEDS ORDERED: ONDANSETRON 4 MG/2 ML VIAL ONE (01:05)
[2021-02-15 01:25] LABS: VENOUS BASE EXCESS 0.3 mmol/L (-2-2); VENOUS O2 SATURATION 90.7 % (70-80); VENOUS PCO2 37.9 mmHg (38-52); VENOUS PH 7.426 (7.310-7.410)
[2021-02-15 01:31] LABS: INR 1.31 (0.83-1.09); PROTHROMBIN TIME (PATIENT) 14.7 SEC (9.7-13.0)
[2021-02-15 01:33] LABS: ACTIVATED PTT 35.8 SECONDS (25.2-36.5)
[2021-02-15 01:48] LABS: EOS % 1.2 % (0-4.5); HEMATOCRIT 43.9 % (35.4-49); HEMOGLOBIN 15.3 GM/dL (11.7-16.9); LYMPH % 21.7 % (8-40); MCH 34.8 pg (25.7-33.7); MCHC 34.8 g/dl (32.0-35.9); MEAN PLT VOLUME 9.3 fl (7.5-11.1); MONO % 12.1 % (3.8-10.2); PLATELET COUNT 105 10^3/uL (134-434); RBC 4.39 M/mm3 (4.00-5.60); RDW 15.5 % (11.9-15.9); WHITE BLOOD COUNT 6.2 K/mm3 (4.0-10.0)
[2021-02-15 01:49] LABS: CHLORIDE 103 mmol/L (98-107); SODIUM 135 mmol/L (136-145)
[2021-02-15 01:51] LABS: ALBUMIN 3.1 g/dl (3.4-5.0); CALCIUM 8.6 mg/dL (8.5-10.1)
[2021-02-15 01:52] LABS: BLOOD UREA NITROGEN 7.8 mg/dL (7-18); GLUCOSE,RANDOM 152 mg/dL (74-106); LIPASE 304 U/L (73-393); MAGNESIUM 1.9 mg/dL (1.8-2.4)
[2021-02-15 01:54] LABS: SGOT/AST 58 U/L (15-37); SGPT/ALT 52 U/L (13-61)
[2021-02-15 01:55] LABS: CREATININE 0.7 mg/dL (0.55-1.3)
[2021-02-15 01:56] LABS: BILIRUBIN,TOTAL 0.9 mg/dL (0.2-1); TOT PROT 8.1 g/dl (6.4-8.2)
[2021-02-15 01:57] LABS: ALK PHOS 154 U/L (45-117)
[2021-02-15 02:23] LABS: ANION GAP 8 MMOL/L (8-16); CO2 24 mmol/L (21-32)
[2021-02-15 02:52] LABS: EPI CELLS 5 /uL (0-25.1); HYALINE CASTS 1 /uL (0-3.1); URINE APPEARANCE CLEAR; URINE BACTERIA 2 /uL (0-1359); URINE BILIRUBIN NEGATIVE (NEGATIVE); URINE COLOR DK YELLOW; URINE GLUCOSE (UA) NEGATIVE (NEGATIVE); URINE KETONE NEGATIVE (NEGATIVE); URINE LEUK ESTERASE NEGATIVE (NEGATIVE); URINE NITRITE NEGATIVE (NEGATIVE); URINE PROTEIN 1+ (NEGATIVE); URINE RBC 10 /uL (0-23.9); URINE WBC 10 /uL (0-25.8)
[2021-02-15] MEDS ORDERED: morphine CARPU-JECT 2 MG/1 ML DISP.SYRIN IVPUSH ONE (04:16)
[2021-02-15] MEDS ORDERED: AZITHROMYCIN IVPB 500 MG in DEXTROSE 5%-WATER - 250 ML IVPB ONE (04:37)
[2021-02-15] MEDS ORDERED: CEFTRIAXONE 1 GM/50 ML BAG ONE (04:41)
[2021-02-15] MEDS ORDERED: AZITHROMYCIN IVPB 500 MG/250 ML BAG IVPB ONE (05:07)
[2021-02-15] MEDS ORDERED: morphine SULFATE 4 MG/ML VIAL IVPUSH ONE ×2 (08:30→10:04)
[2021-02-15] MEDS ORDERED: diazePAM 5 MG TABLET PO PRN (10:35)
[2021-02-15] MEDS: ENOXAPARIN NA (PORCINE) 40 MG/0.4 ML DISP.SYRIN SQ SCH (10:54)
[2021-02-15] MEDS ORDERED: FOLIC ACID INJECTION - 1 MG, THIAMINE HCL 100 MG, MULTIVIT INJECTION ADULT 10 ML in SOD... IVPB ONE (11:30)
[2021-02-15] MEDS: ENALAPRIL MALEATE 10 MG TABLET PO SCH (12:03)
[2021-02-15 14:22] LABS: COCAINE, UR NEGATIVE (NEGATIVE); METHADONE, UR NEGATIVE (NEGATIVE); PHENCYCLIDINE,URINE NEGATIVE (NEGATIVE); URINE BARBITURATES NEGATIVE (NEGATIVE); URINE BENZODIAZEPINES NEGATIVE (NEGATIVE)
[2021-02-15 14:23] LABS: URINE AMPHETAMINES NEGATIVE (NEGATIVE)
[2021-02-15 14:24] LABS: OPIATES, URI POSITIVE (NEGATIVE)
[2021-02-15] MEDS: SODIUM CHLORIDE 1,000 ML IV SCH ×2 (15:51→22:06)
[2021-02-15] MEDS: morphine SULFATE 4 MG/ML VIAL IVPUSH PRN ×2 (15:51→21:03)
[2021-02-15 16:03] VITALS: BMI 33.8
[2021-02-15] MEDS: ATORVASTATIN CA 40 MG TABLET (FP) PO SCH (21:04)
[2021-02-16] MEDS: morphine SULFATE 4 MG/ML VIAL IVPUSH PRN ×4 (01:00→19:51)
[2021-02-16] MEDS: SODIUM CHLORIDE 1,000 ML IV SCH ×3 (06:25→21:37)
[2021-02-16 08:49] LABS: CALCIUM 8.6 mg/dL (8.5-10.1)
[2021-02-16 08:51] LABS: ALBUMIN 2.6 g/dl (3.4-5.0); BLOOD UREA NITROGEN 14.1 mg/dL (7-18)
[2021-02-16 08:54] LABS: BILIRUBIN,TOTAL 1.2 mg/dL (0.2-1); CREATININE 0.7 mg/dL (0.55-1.3)
[2021-02-16 08:55] LABS: TOT PROT 7.1 g/dl (6.4-8.2)
[2021-02-16] MEDS ORDERED: CEFTRIAXONE 1 GM in DEXTROSE 5%-WATER - 50 ML IVPB SCH (10:00)
[2021-02-16] MEDS ORDERED: AZITHROMYCIN IVPB 250 MG in DEXTROSE 5%-WATER - 250 ML IVPB SCH (10:00)
[2021-02-16] MEDS ORDERED: cefTRIAXone SODIUM 1 GM VIAL ONE (10:37)
[2021-02-16] MEDS ORDERED: DEXTROSE 5%-WATER - 50 ML IVPB ONE (10:37)
[2021-02-16] MEDS: ENALAPRIL MALEATE 10 MG TABLET PO SCH (10:38)
[2021-02-16] MEDS: ENOXAPARIN NA (PORCINE) 40 MG/0.4 ML DISP.SYRIN SQ SCH (10:38)
[2021-02-16] MEDS: ATORVASTATIN CA 40 MG TABLET (FP) PO SCH (21:28)
[2021-02-17] MEDS: ENOXAPARIN NA (PORCINE) 40 MG/0.4 ML DISP.SYRIN SQ SCH (09:41)
[2021-02-17] MEDS: ENALAPRIL MALEATE 10 MG TABLET PO SCH (09:41)
[2021-02-17] MEDS: SODIUM CHLORIDE 1,000 ML IV SCH ×2 (09:41→16:08)
[2021-02-17] MEDS ORDERED: ACETAMINOPHEN 1000 MG/100 ML VIAL IVPB PRN (09:54)
[2021-02-17] MEDS ORDERED: KETOROLAC TROMETHAMINE 15 MG/ML VIAL IVPUSH PRN (09:54)
[2021-02-17] MEDS: SIMETHICONE 80 MG TAB.CHEW (FP) PO SCH ×4 (10:37→21:22)
[2021-02-17 13:26] LABS: BLOOD UREA NITROGEN 8.7 mg/dL (7-18)
[2021-02-17 13:27] LABS: ALBUMIN 2.8 g/dl (3.4-5.0); CALCIUM 8.4 mg/dL (8.5-10.1); MAGNESIUM 2.1 mg/dL (1.8-2.4)
[2021-02-17 13:32] LABS: BILIRUBIN,TOTAL 0.9 mg/dL (0.2-1); CREATININE 0.7 mg/dL (0.55-1.3); TOT PROT 7.2 g/dl (6.4-8.2)
[2021-02-17] MEDS ORDERED: Methylnaltrexone Bromide 12 MG/0.6 ML KIT SQ ONE (16:14)
[2021-02-17] MEDS: KETOROLAC TROMETHAMINE 30 MG/1 ML VIAL IVPUSH PRN (18:47)
[2021-02-17] MEDS: ATORVASTATIN CA 40 MG TABLET (FP) PO SCH (21:22)
[2021-02-18] MEDS: SODIUM CHLORIDE 1,000 ML IV SCH (06:31)
[2021-02-18 10:00] LABS: BLOOD UREA NITROGEN 11.5 mg/dL (7-18); CALCIUM 9.2 mg/dL (8.5-10.1)
[2021-02-18 10:02] LABS: CREATININE 0.9 mg/dL (0.55-1.3)
[2021-02-18] MEDS: SIMETHICONE 80 MG TAB.CHEW (FP) PO SCH ×2 (10:48→13:49)
[2021-02-18] MEDS: ENALAPRIL MALEATE 10 MG TABLET PO SCH (10:48)
[2021-02-18] MEDS: ENOXAPARIN NA (PORCINE) 40 MG/0.4 ML DISP.SYRIN SQ SCH (10:49)
[2021-02-18 11:01] LABS: HEMATOCRIT 44.5 % (35.4-49); HEMOGLOBIN 15.2 GM/dL (11.7-16.9); MCH 34.2 pg (25.7-33.7); MCHC 34.2 g/dl (32.0-35.9); MEAN PLT VOLUME 9.7 fl (7.5-11.1); PLATELET COUNT 103 10^3/uL (134-434); RBC 4.44 M/mm3 (4.00-5.60); RDW 15.2 % (11.9-15.9); WHITE BLOOD COUNT 3.7 K/mm3 (4.0-10.0)
[2021-02-18 11:58] LABS: MAGNESIUM 2.2 mg/dL (1.8-2.4)
[2021-02-18 12:03] LABS: PHOSPHOROUS 2.7 mg/dL (2.5-4.9)
[2021-02-18] MEDS: KETOROLAC TROMETHAMINE 30 MG/1 ML VIAL IVPUSH PRN (13:49)
[2021-02-18 14:53] VITALS: TEMP 97.3
[2021-02-18 15:17] VITALS: BP 146/83; PULSE 80
[2021-02-19] MEDS ORDERED: Methylnaltrexone Bromide 12 MG/0.6 ML KIT SQ ONE (11:30)
== END 2021-02-18 16:56 | disposition home or self-care (01) | DRG 389 ==
LOC: JER 00:24 → JERBED 04:25 → J6S 09:18
PROVIDERS: ATTEND Internal Medicine
DX: K56.609 Unspecified intestinal obstruction, unspecified as to partial versus complete obstruction (principal); F10.239 Alcohol dependence with withdrawal, unspecified; J84.9 Interstitial pulmonary disease, unspecified; I10 Essential (primary) hypertension; E78.5 Hyperlipidemia, unspecified; D69.59 Other secondary thrombocytopenia; K76.0 Fatty (change of) liver, not elsewhere classified; R14.3 Flatulence; M48.02 Spinal stenosis, cervical region; I51.7 Cardiomegaly; R21 Rash and other nonspecific skin eruption; R80.9 Proteinuria, unspecified; E66.9 Obesity, unspecified; Z68.33 Body mass index [BMI] 33.0-33.9, adult; J44.9 Chronic obstructive pulmonary disease, unspecified; Z96.653 Presence of artificial knee joint, bilateral
CPT/HCPCS: 36415; 71045-TC-FY; 71275-TC; 74018-TC-FY; 74174-TC; 76705-TC; 80048; 80053; 80307; 81003; 82550; 82607; 82747; 82803; 83605; 83690; 83735; 84100; 84132; 84484; 85014; 85025; 85027; 85610; 85730; 86850; 86900; 86901; 87086; 87804; 93005; 93010; 97116-GP; 97162-GP; 99285-25; C9803; Q9967; U0003; U0005

== ENCOUNTER → 2021-05-28 | Day surgery (SDC) | payer OTHER ==
[~2021-05-28] MED LIST: BUPIVACAINE HCL/PF 0.5% (5MG/ML) 10 ML VIAL ONE; BUPIVACAINE HCL/PF 0.75% 10 ML VIAL ONE; DEXAMETHASONE SOD PHOSPHATE 10 MG/1 ML VIAL ONE; LIDOCAINE HCL/PF 1% SDV 5ML VIAL ONE; SODIUM CHLORIDE 0.9% P/F 10 ML VIAL IJ ONE; TRIAMCINOLONE ACET 40MG/1ML VIAL ONE
== END ==
LOC: JASU-SURG 05:25
PROVIDERS: ATTEND Pain Medicine Pain Medicine
DX: Z53.8 Procedure and treatment not carried out for other reasons (principal)
CPT/HCPCS: J1100

== ENCOUNTER → 2021-05-31 | Day surgery (SDC) | payer OTHER ==
[~2021-05-31] MED LIST changes: -BUPIVACAINE HCL/PF 0.5% (5MG/ML) 10 ML VIAL ONE; +LIDOCAINE HCL/PF 2% SDV 5ML VIAL ONE; -SODIUM CHLORIDE 0.9% P/F 10 ML VIAL IJ ONE; -TRIAMCINOLONE ACET 40MG/1ML VIAL ONE
== END | disposition home or self-care (01) ==
LOC: JASU-SURG 05:35
PROVIDERS: ATTEND Pain Medicine Pain Medicine
DX: Z53.29 Procedure and treatment not carried out because of patient's decision for other reasons (principal)
CPT/HCPCS: J1100

== ENCOUNTER 2023-04-27 09:18 | Inpatient (IN) | payer OTHER ==
[2023-04-27 09:24] VITALS: BMI 34.0
[2023-04-27 10:40] LABS: INR 1.41 (0.83-1.09); PROTHROMBIN TIME (PATIENT) 16.3 SEC (9.7-13.0)
[2023-04-27 10:43] LABS: ACTIVATED PTT 35.6 SECONDS (25.2-36.5)
[2023-04-27 10:58] LABS: POTASSIUM 3.5 mmol/L (3.5-5.1)
[2023-04-27] MEDS ORDERED: ACETAMINOPHEN INJECTION 100 ML IVPB ONE (10:58)
[2023-04-27] MEDS ORDERED: AMPICILLIN NA/SULBACTAM NA 3 GM in DEXTROSE 5%-WATER 100 ML IVPB ONE (11:00)
[2023-04-27 11:02] LABS: BASO % 0.9 % (0-2.0); CALCIUM 8.6 mg/dL (8.5-10.1); EOS % 2.5 % (0-4.5); HEMATOCRIT 37.5 % (35.4-49); HEMOGLOBIN 13.4 GM/dL (11.7-16.9); LYMPH % 30.9 % (8-40); MCH 37.4 pg (25.7-33.7); MCHC 35.8 g/dl (32.0-35.9); MEAN CELL VOLUME 104.4 fl (80-96); MEAN PLT VOLUME 8.9 fl (7.5-11.1); MONO % 18.3 % (3.8-10.2); NEUT % 47.4 % (42.8-82.8); PLATELET COUNT 84 10^3/uL (134-434); RBC 3.59 M/mm3 (4.00-5.60); RDW 16.5 % (11.9-15.9); WHITE BLOOD COUNT 3.7 K/mm3 (4.0-10.0)
[2023-04-27 11:03] LABS: ALBUMIN 1.6 g/dl (3.4-5.0); MAGNESIUM 1.6 mg/dL (1.8-2.4)
[2023-04-27 11:05] LABS: CREATININE 0.8 mg/dL (0.55-1.3)
[2023-04-27 11:07] LABS: BILIRUBIN,TOTAL 1.4 mg/dL (0.2-1); TOT PROT 7.3 g/dl (6.4-8.2)
[2023-04-27] MEDS: ACETAMINOPHEN 1000 MG/100 ML BAG IVPB ONE (11:08)
[2023-04-27 11:11] LABS: N-TERMINAL BNP 107.7 pg/ml (5-125)
[2023-04-27] MEDS ORDERED: MAGNESIUM SULFATE IN WATER 2 GM/50 ML IVPB IVPB ONE (12:04)
[2023-04-27] MEDS ORDERED: FUROSEMIDE 40 MG/4 ML INJECTABLE VIAL ONE (12:45)
[2023-04-27] MEDS: AMPICILLIN NA/SULBACTAM NA 3 GM in SODIUM CHLORIDE 100 ML IVPB ONE (13:16)
[2023-04-27] MEDS: FUROSEMIDE 40 MG/4 ML INJECTABLE VIAL IVPUSH ONE (13:16)
[2023-04-27] MEDS: MAGNESIUM SULF 50% (8.12 MEQ/2 ML-1 GM VIAL) IVPB ONE (13:28)
[2023-04-27] MEDS ORDERED: AMPICILLIN NA/SULBACTAM NA 3 GM/100 ML BAG IVPB ONE ×2 (18:21→20:20)
[2023-04-27] MEDS: ACETAMINOPHEN 1000 MG/100 ML BAG IVPB PRN (18:35)
[2023-04-27] MEDS: AMPICILLIN NA/SULBACTAM NA 3 GM in DEXTROSE 5%-WATER 100 ML IVPB SCH (18:54)
[2023-04-27] MEDS: AMPICILLIN NA/SULBACTAM NA 3 GM in SODIUM CHLORIDE 100 ML IVPB SCH (20:24)
[2023-04-27] MEDS ORDERED: ATORVASTATIN CA 40 MG TABLET (FP) ONE (22:14)
[2023-04-27] MEDS: ATORVASTATIN CA 40 MG TABLET (FP) PO SCH (22:19)
[2023-04-28] MEDS ORDERED: AMPICILLIN NA/SULBACTAM NA 3 GM/100 ML BAG IVPB ONE ×2 (02:03→09:50)
[2023-04-28 07:41] LABS: POTASSIUM 3.7 mmol/L (3.5-5.1)
[2023-04-28 07:45] LABS: ALBUMIN 1.6 g/dl (3.4-5.0); CALCIUM 8.4 mg/dL (8.5-10.1)
[2023-04-28 07:49] LABS: CREATININE 0.7 mg/dL (0.55-1.3)
[2023-04-28 07:50] LABS: TOT PROT 7.1 g/dl (6.4-8.2)
[2023-04-28] MEDS ORDERED: FUROSEMIDE 40 MG/4 ML INJECTABLE VIAL ONE (09:53)
[2023-04-28] MEDS: ENOXAPARIN NA (PORCINE) 40 MG/0.4 ML DISP.SYRIN SQ SCH (10:05)
[2023-04-28] MEDS: ENALAPRIL MALEATE 10 MG TABLET PO SCH (10:05)
[2023-04-28] MEDS: FUROSEMIDE 40 MG/4 ML INJECTABLE VIAL IVPUSH SCH (10:05)
[2023-04-28 11:01] LABS: BASO % 0.3 % (0-2.0); EOS % 2.5 % (0-4.5); HEMATOCRIT 38.8 % (35.4-49); HEMOGLOBIN 13.5 GM/dL (11.7-16.9); LYMPH % 21.3 % (8-40); MCH 36.5 pg (25.7-33.7); MCHC 34.8 g/dl (32.0-35.9); MEAN CELL VOLUME 104.7 fl (80-96); MEAN PLT VOLUME 9.5 fl (7.5-11.1); MONO % 15.7 % (3.8-10.2); NEUT % 60.2 % (42.8-82.8); PLATELET COUNT 64 10^3/uL (134-434); RBC 3.71 M/mm3 (4.00-5.60); RDW 16.7 % (11.9-15.9); WHITE BLOOD COUNT 3.4 K/mm3 (4.0-10.0)
[2023-04-28] MEDS: AMPICILLIN NA/SULBACTAM NA 3 GM in SODIUM CHLORIDE 100 ML IVPB SCH (20:26)
[2023-04-29 07:18] LABS: POTASSIUM 3.5 mmol/L (3.5-5.1)
[2023-04-29 07:22] LABS: ALBUMIN 1.6 g/dl (3.4-5.0); BLOOD UREA NITROGEN 7.3 mg/dL (7-18); CALCIUM 8.3 mg/dL (8.5-10.1)
[2023-04-29 07:25] LABS: CREATININE 0.8 mg/dL (0.55-1.3)
[2023-04-29 07:27] LABS: TOT PROT 7.1 g/dl (6.4-8.2)
[2023-04-30 07:06] LABS: POTASSIUM 3.2 mmol/L (3.5-5.1)
[2023-04-30 07:23] LABS: CALCIUM 8.3 mg/dL (8.5-10.1)
[2023-04-30 07:24] LABS: ALBUMIN 1.4 g/dl (3.4-5.0)
[2023-04-30 07:25] LABS: BLOOD UREA NITROGEN 8.8 mg/dL (7-18)
[2023-04-30 07:28] LABS: CREATININE 0.8 mg/dL (0.55-1.3)
[2023-04-30 07:29] LABS: BILIRUBIN,TOTAL 1.7 mg/dL (0.2-1)
[2023-04-30 07:30] LABS: TOT PROT 6.2 g/dl (6.4-8.2)
[2023-04-30 09:25] LABS: EOS % 3.4 % (0-4.5); HEMATOCRIT 36.2 % (35.4-49); HEMOGLOBIN 12.5 GM/dL (11.7-16.9); LYMPH % 28.7 % (8-40); MCH 36.9 pg (25.7-33.7); MCHC 34.5 g/dl (32.0-35.9); MEAN PLT VOLUME 9.8 fl (7.5-11.1); NEUT % 56.9 % (42.8-82.8); PLATELET COUNT 59 10^3/uL (134-434); RBC 3.38 M/mm3 (4.00-5.60); WHITE BLOOD COUNT 4.5 K/mm3 (4.0-10.0)
[2023-04-30 10:17] LABS: PLATELET ESTIMATE DECREASED
[2023-04-30] MEDS: ACETAMINOPHEN 325 MG TABLET (FP) PO PRN (22:00)
[2023-05-01] MEDS: POTASSIUM CHLORIDE ORAL LIQUID 20 MEQ/15 ML PO ONE (11:09)
[2023-05-01] MEDS: DOXYCYCLINE HYCLATE 100 MG CAPSULE PO SCH (17:30)
[2023-05-01] MEDS ORDERED: ACETAMINOPHEN 325 MG TABLET (FP) PO PRN (20:41)
[2023-05-01 20:51] VITALS: RESP 18
[2023-05-01] MEDS: ATORVASTATIN CA 40 MG TABLET (FP) PO SCH (21:34)
[2023-05-02] MEDS: AMPICILLIN NA/SULBACTAM NA 3 GM in SODIUM CHLORIDE 100 ML IVPB SCH (01:15)
[2023-05-02 08:57] LABS: POTASSIUM 3.8 mmol/L (3.5-5.1)
[2023-05-02 09:00] LABS: CALCIUM 8.4 mg/dL (8.5-10.1)
[2023-05-02 09:02] LABS: BLOOD UREA NITROGEN 10.5 mg/dL (7-18)
[2023-05-02 09:04] LABS: CREATININE 0.9 mg/dL (0.55-1.3)
[2023-05-02 09:06] LABS: BILIRUBIN,TOTAL 1.9 mg/dL (0.2-1); TOT PROT 7.2 g/dl (6.4-8.2)
[2023-05-02 09:07] LABS: ALBUMIN 1.7 g/dl (3.4-5.0)
[2023-05-02] MEDS: FUROSEMIDE 40 MG/4 ML INJECTABLE VIAL IVPUSH SCH (09:52)
[2023-05-02 09:54] LABS: BASO % 0.8 % (0-2.0); EOS % 2.9 % (0-4.5); HEMATOCRIT 39.4 % (35.4-49); HEMOGLOBIN 13.6 GM/dL (11.7-16.9); LYMPH % 39.1 % (8-40); MCHC 34.6 g/dl (32.0-35.9); MEAN CELL VOLUME 106.9 fl (80-96); MEAN PLT VOLUME 8.9 fl (7.5-11.1); MONO % 12.1 % (3.8-10.2); NEUT % 45.1 % (42.8-82.8); PLATELET COUNT 88 10^3/uL (134-434); RBC 3.68 M/mm3 (4.00-5.60); RDW 16.5 % (11.9-15.9); WHITE BLOOD COUNT 5.6 K/mm3 (4.0-10.0)
[2023-05-02] MEDS: ENALAPRIL MALEATE 10 MG TABLET PO SCH (09:56)
[2023-05-04 10:17] VITALS: BP 120/62; PULSE 102; TEMP 97.9
[2023-05-04 16:08] LABS: IG A QN SERUM. 1094 mg/dL (90-386)
[2023-05-05 17:10] LABS: FREE KAPPA,SERUM 95.2 mg/L (3.3-19.4)
== END 2023-05-04 12:42 | disposition home or self-care (01) | DRG 603 ==
LOC: JER 09:18 → JERBED 10:24 → J4W 04-28 13:26 → J5S 05-01 18:45
PROVIDERS: ADMIT Internal Medicine; ATTEND Internal Medicine
DX: L03.115 Cellulitis of right lower limb (principal); E87.70 Fluid overload, unspecified; F10.20 Alcohol dependence, uncomplicated; E78.5 Hyperlipidemia, unspecified; K70.9 Alcoholic liver disease, unspecified; D69.6 Thrombocytopenia, unspecified; I87.8 Other specified disorders of veins; I89.0 Lymphedema, not elsewhere classified
CPT/HCPCS: 0241U-QW; 36415; 71045-TC-FY; 73560-TC-LT-FY; 73560-TC-RT-FY; 76705-TC; 80053; 80061; 82607; 82747; 82784; 83036; 83735; 83880; 83883; 84155; 84165; 84443; 84484; 85014; 85025; 85610; 85730; 86704; 86803; 87340; 93005; 93010; 93306-TC; 93970-TC; 97116-GP; 97162-GP; 99285-25; J0131

== ENCOUNTER 2023-11-23 13:11 | Emergency (ER) | payer OTHER ==
[2023-11-23 13:33] VITALS: TEMP 98.9; BMI 28.1
[2023-11-23] MEDS ORDERED: ONDANSETRON 4 MG/2 ML VIAL ONE (13:55)
[2023-11-23] MEDS: ONDANSETRON 4 MG/2 ML VIAL IVPUSH ONE (14:26)
[2023-11-23] MEDS ORDERED: diazePAM CARPU-JECT 10 MG/2 ML DISP.SYRIN ONE (14:34)
[2023-11-23 14:42] LABS: INR 1.47 (0.83-1.09); PROTHROMBIN TIME (PATIENT) 16.7 SEC (9.7-13.0)
[2023-11-23 14:45] LABS: ACTIVATED PTT 35.2 SECONDS (25.2-36.5)
[2023-11-23 14:50] LABS: POTASSIUM 3.4 mmol/L (3.5-5.1)
[2023-11-23] MEDS: diazePAM CARPU-JECT 10 MG/2 ML DISP.SYRIN IVPUSH ONE (14:50)
[2023-11-23 14:52] LABS: ALBUMIN 2.1 g/dl (3.4-5.0); BLOOD UREA NITROGEN 6.9 mg/dL (7-18); CALCIUM 8.8 mg/dL (8.5-10.1); MAGNESIUM 1.4 mg/dL (1.8-2.4)
[2023-11-23 14:56] LABS: CREATININE 0.9 mg/dL (0.55-1.3)
[2023-11-23 14:57] LABS: BILIRUBIN,TOTAL 1.9 mg/dL (0.2-1)
[2023-11-23 14:59] LABS: BASO % 0.5 % (0-2.0); EOS % 0.1 % (0-4.5); HEMATOCRIT 34.4 % (35.4-49); HEMOGLOBIN 11.8 GM/dL (11.7-16.9); LYMPH % 6.3 % (8-40); MCH 33.9 pg (25.7-33.7); MCHC 34.4 g/dl (32.0-35.9); MEAN CELL VOLUME 98.4 fl (80-96); MEAN PLT VOLUME 8.6 fl (7.5-11.1); MONO % 6.2 % (3.8-10.2); NEUT % 86.9 % (42.8-82.8); PLATELET COUNT 88 10^3/uL (134-434)
[2023-11-23] MEDS ORDERED: MAGNESIUM SULFATE IN WATER 2 GM/50 ML IVPB IVPB ONE (15:41)
[2023-11-23 15:46] LABS: HIV INTERPRETATION NEGATIVE (NEGATIVE)
[2023-11-23] MEDS: MAGNESIUM SULFATE IN WATER 2 GM/50 ML IVPB IVPB ONE (15:49)
[2023-11-23 15:56] VITALS: BP 143/60; PULSE 91; RESP 16
== END 2023-11-23 16:55 | disposition home or self-care (01) ==
LOC: JER 13:11
PROC: 3E033GC Introduction of Other Therapeutic Substance into Peripheral Vein, Percutaneous Approach (ICD-10-PCS; principal; 2023-11-23)
PROC: 3E033GC Introduction of Other Therapeutic Substance into Peripheral Vein, Percutaneous Approach (ICD-10-PCS; 2023-11-23)
PROC: 3E033GC Introduction of Other Therapeutic Substance into Peripheral Vein, Percutaneous Approach (ICD-10-PCS; 2023-11-23)
DX: F10.930 Alcohol use, unspecified with withdrawal, uncomplicated (principal); R07.9 Chest pain, unspecified; I10 Essential (primary) hypertension; R42 Dizziness and giddiness; R11.10 Vomiting, unspecified; R06.02 Shortness of breath; R25.1 Tremor, unspecified; R51.9 Headache, unspecified
CPT/HCPCS: 36415; 71045-TC-FY; 80053; 83690; 83735; 84484; 85025; 85610; 85730; 86803; 87389; 93005; 93010; 96365; 96375; 99285-25

== ENCOUNTER 2023-12-15 17:45 | Inpatient (IN) | payer OTHER ==
[2023-12-15] MEDS: LACTATED RINGERS SOLUTION 1000 ML INFUS.BAG IV ONE ×2 (18:54→20:31)
[2023-12-15 19:17] LABS: INR 1.61 (0.83-1.09); PROTHROMBIN TIME (PATIENT) 18.3 SEC (9.7-13.0)
[2023-12-15 19:20] LABS: ACTIVATED PTT 36.4 SECONDS (25.2-36.5)
[2023-12-15 19:25] LABS: POTASSIUM 4.3 mmol/L (3.5-5.1)
[2023-12-15 19:28] LABS: CALCIUM 9.3 mg/dL (8.5-10.1)
[2023-12-15 19:29] LABS: ALBUMIN 2.1 g/dl (3.4-5.0); BLOOD UREA NITROGEN 7.3 mg/dL (7-18)
[2023-12-15 19:31] LABS: CREATININE 0.9 mg/dL (0.55-1.3)
[2023-12-15 19:33] LABS: BILIRUBIN,TOTAL 6.1 mg/dL (0.2-1); TOT PROT 7.7 g/dl (6.4-8.2)
[2023-12-15 19:36] LABS: LACTIC ACID 4.5 mmol/L (0.4-2.0)
[2023-12-15] MEDS ORDERED: THIAMINE HCL 200 MG/2 ML VIAL ONE (20:15)
[2023-12-15] MEDS ORDERED: morphine SULFATE 4 MG/ML VIAL ONE (20:15)
[2023-12-15] MEDS ORDERED: LACTULOSE 20 GM/30 ML UDC (FOR ORAL USE ONLY) ONE (20:16)
[2023-12-15] MEDS ORDERED: ACETAMINOPHEN INJECTION 100 ML ONE (20:16)
[2023-12-15 20:20] LABS: HEMATOCRIT 38.5 % (35.4-49); HEMOGLOBIN 12.9 GM/dL (11.7-16.9); MCH 33.5 pg (25.7-33.7); MEAN CELL VOLUME 99.8 fl (80-96); MEAN PLT VOLUME 8.6 fl (7.5-11.1); PLATELET COUNT 111 10^3/uL (134-434); RBC 3.86 M/mm3 (4.00-5.60); RDW 16.6 % (11.9-15.9); WHITE BLOOD COUNT 7.5 K/mm3 (4.0-10.0)
[2023-12-15 20:22] LABS: ADD RBC MORPHOLOGY YES
[2023-12-15 20:30] LABS: HIV INTERPRETATION NEGATIVE (NEGATIVE)
[2023-12-15 20:31] LABS: MCHC 33.6 g/dl (32.0-35.9)
[2023-12-15] MEDS: ACETAMINOPHEN 1000 MG/100 ML BAG IVPB ONE (20:32)
[2023-12-15] MEDS: LACTULOSE 20 GM/30 ML UDC (FOR ORAL USE ONLY) PO ONE (20:32)
[2023-12-15] MEDS: morphine CARPU-JECT 4 MG/1 ML DISP.SYRIN IVPUSH ONE (20:32)
[2023-12-15] MEDS: THIAMINE HCL 200 MG/2 ML VIAL IVPB ONE (20:32)
[2023-12-15 20:57] LABS: ANISOCYTOSIS 2+; MACROCYTOSIS 2+
[2023-12-15] MEDS ORDERED: PIPERACILLIN/TAZOB 4.5 GM 4.5 GM/100 ML BAG IVPB ONE (23:48)
[2023-12-15] MEDS: PIPERACILLIN/TAZOB 4.5 GM 4.5 GM in DEXTROSE 5%-WATER 100 ML IVPB ONE (23:57)
[2023-12-16 00:34] LABS: LACTIC ACID 2.9 mmol/L (0.4-2.0)
[2023-12-16] MEDS: LACTATED RINGERS SOLUTION 1,000 ML IV SCH ×2 (01:50→14:52)
[2023-12-16] MEDS ORDERED: morphine SULFATE 4 MG/ML VIAL ONE (01:51)
[2023-12-16] MEDS: morphine SULFATE 4 MG/ML VIAL IVPUSH PRN (02:00)
[2023-12-16] MEDS: SODIUM CHLORIDE 1,000 ML IV SCH (04:30)
[2023-12-16 08:08] LABS: EPI CELLS 8 /uL (0-25.1); HYALINE CASTS 0 /uL (0-3.1); URINE APPEARANCE CLEAR; URINE BILIRUBIN 2+ (NEGATIVE); URINE COLOR DK YELLOW; URINE GLUCOSE (UA) NEGATIVE (NEGATIVE); URINE KETONE NEGATIVE (NEGATIVE); URINE LEUK ESTERASE 1+ (NEGATIVE); URINE NITRITE POSITIVE (NEGATIVE); URINE PROTEIN 1+ (NEGATIVE); URINE WBC 215 /uL (0-25.8)
[2023-12-16 08:39] LABS: URINE BACTERIA 367 /uL (0-1359); URINE RBC 255 /uL (0-23.9); YEAST NONE SEEN (NEGATIVE)
[2023-12-16] MEDS ORDERED: PIPERACILLIN/TAZOB 4.5 GM 4.5 GM/100 ML BAG IVPB ONE (09:12)
[2023-12-16 09:30] LABS: HEMATOCRIT 37.9 % (35.4-49); HEMOGLOBIN 12.7 GM/dL (11.7-16.9); MCH 33.5 pg (25.7-33.7); MCHC 33.4 g/dl (32.0-35.9); MEAN CELL VOLUME 100.3 fl (80-96); RBC 3.78 M/mm3 (4.00-5.60); RDW 17.3 % (11.9-15.9); WHITE BLOOD COUNT 10.6 K/mm3 (4.0-10.0)
[2023-12-16] MEDS: PIPERACILLIN/TAZOB 4.5 GM 4.5 GM in DEXTROSE 5%-WATER 100 ML IVPB SCH (09:30)
[2023-12-16 09:53] LABS: ANISOCYTOSIS 0; MACROCYTOSIS 0
[2023-12-16 10:02] LABS: PLATELET ESTIMATE SLT DECREASE
[2023-12-16 10:36] LABS: BILIRUBIN,TOTAL 7.9 mg/dL (0.2-1); BLOOD UREA NITROGEN 10.6 mg/dL (7-18); CALCIUM 9.6 mg/dL (8.5-10.1); CREATININE 1.2 mg/dL (0.55-1.3); POTASSIUM 4.9 mmol/L (3.5-5.1); TOT PROT 7.2 g/dl (6.4-8.2)
[2023-12-16] MEDS: LACTATED RINGERS SOLUTION 1,000 ML/1,000 ML INFUS.BAG IV SCH (16:40)
[2023-12-16] MEDS: PIPERACILLIN/TAZOB 3.375 GM 3.375 GM in DEXTROSE 5%-WATER - 50 ML IVPB SCH (18:07)
[2023-12-16] MEDS ORDERED: PIPERACILLIN/TAZOB 3.375 GM 3.375 GM/50 ML BAG IVPB ONE (18:09)
[2023-12-16] MEDS: LACTULOSE 20 GM/30 ML UDC (FOR ORAL USE ONLY) PO SCH (21:04)
[2023-12-17 01:43] VITALS: BMI 34.7
[2023-12-17] MEDS ORDERED: PIPERACILLIN/TAZOB 4.5 GM 4.5 GM in DEXTROSE 5%-WATER 100 ML IVPB SCH (09:00)
[2023-12-17] MEDS: FUROSEMIDE 40 MG TABLET (FP) PO SCH (10:04)
[2023-12-17] MEDS: THIAMINE 100 MG TABLET PO SCH (10:04)
[2023-12-17] MEDS: FOLIC ACID 1 MG TABLET (FP) PO SCH (10:04)
[2023-12-17 10:29] LABS: INR 2.62 (0.83-1.09); PROTHROMBIN TIME (PATIENT) 29.3 SEC (9.7-13.0)
[2023-12-17 10:47] LABS: BASO % 0.3 % (0-2.0); EOS % 0.6 % (0-4.5); HEMATOCRIT 33.3 % (35.4-49); HEMOGLOBIN 11.7 GM/dL (11.7-16.9); LYMPH % 9.1 % (8-40); MCH 34.9 pg (25.7-33.7); MCHC 35.1 g/dl (32.0-35.9); MEAN CELL VOLUME 99.5 fl (80-96); MEAN PLT VOLUME 8.9 fl (7.5-11.1); MONO % 5.4 % (3.8-10.2); NEUT % 84.6 % (42.8-82.8); PLATELET COUNT 94 10^3/uL (134-434); POTASSIUM 3.8 mmol/L (3.5-5.1); RBC 3.35 M/mm3 (4.00-5.60); WHITE BLOOD COUNT 6.7 K/mm3 (4.0-10.0)
[2023-12-17 10:50] LABS: ALBUMIN 1.8 g/dl (3.4-5.0); CALCIUM 8.6 mg/dL (8.5-10.1)
[2023-12-17 10:54] LABS: CREATININE 1.1 mg/dL (0.55-1.3)
[2023-12-17 10:55] LABS: TOT PROT 6.2 g/dl (6.4-8.2)
[2023-12-17 10:56] LABS: AMYLASE 58 U/L (25-115)
[2023-12-17] MEDS ORDERED: MIDAZOLAM HCL 2 MG/2 ML SINGLE DOSE VIAL ONE (11:28)
[2023-12-17] MEDS: INDOMETHACIN 50 MG RECTAL SUPPOSITORY PR ONE (12:12)
[2023-12-17] MEDS ORDERED: GLUCAGON 1 MG KIT ONE (12:19)
[2023-12-17 18:15] VITALS: RESP 18
[2023-12-18 09:57] LABS: POTASSIUM 4.4 mmol/L (3.5-5.1)
[2023-12-18 09:59] LABS: ALBUMIN 1.8 g/dl (3.4-5.0); BLOOD UREA NITROGEN 31.4 mg/dL (7-18); CALCIUM 8.6 mg/dL (8.5-10.1)
[2023-12-18 10:02] LABS: CREATININE 2.4 mg/dL (0.55-1.3)
[2023-12-18 10:04] LABS: BILIRUBIN,TOTAL 8.6 mg/dL (0.2-1)
[2023-12-18 10:05] LABS: TOT PROT 6.1 g/dl (6.4-8.2)
[2023-12-18] MEDS: LACTULOSE 20 GM/30 ML UDC (FOR ORAL USE ONLY) PO SCH (11:04)
[2023-12-18] MEDS: PHYTONADIONE 10 MG/1 ML AMP IVPB ONE (12:27)
[2023-12-18 12:57] LABS: BASO % 0.2 % (0-2.0); EOS % 3.4 % (0-4.5); HEMATOCRIT 32.6 % (35.4-49); HEMOGLOBIN 11.1 GM/dL (11.7-16.9); LYMPH % 7.3 % (8-40); MCH 33.3 pg (25.7-33.7); MCHC 33.9 g/dl (32.0-35.9); MEAN CELL VOLUME 98.4 fl (80-96); MEAN PLT VOLUME 8.7 fl (7.5-11.1); MONO % 9.1 % (3.8-10.2); PLATELET COUNT 90 10^3/uL (134-434); RBC 3.32 M/mm3 (4.00-5.60); RDW 17.3 % (11.9-15.9)
[2023-12-18 12:57] LABS: INR 2.35 (0.83-1.09); PROTHROMBIN TIME (PATIENT) 25.9 SEC (9.7-13.0)
[2023-12-18 19:55] VITALS: BP 98/58; PULSE 74; TEMP 97.6
== END 2023-12-18 21:00 | disposition short-term general hospital (02) | DRG 440 ==
LOC: JER 17:45 → JERBED 22:51 → J6S 12-16 20:13
PROVIDERS: ADMIT Internal Medicine; ATTEND Internal Medicine
PROC: 0F798DZ Dilation of Common Bile Duct with Intraluminal Device, Via Natural or Artificial Opening Endoscopic (ICD-10-PCS; 2023-12-17)
PROC: 0FC98ZZ Extirpation of Matter from Common Bile Duct, Via Natural or Artificial Opening Endoscopic (ICD-10-PCS; 2023-12-17)
PROC: 0FPB8DZ Removal of Intraluminal Device from Hepatobiliary Duct, Via Natural or Artificial Opening Endoscopic (ICD-10-PCS; principal; 2023-12-17 11:00)
DX: K85.10 Biliary acute pancreatitis without necrosis or infection (principal); I10 Essential (primary) hypertension; E11.9 Type 2 diabetes mellitus without complications; K70.30 Alcoholic cirrhosis of liver without ascites; J44.9 Chronic obstructive pulmonary disease, unspecified; E78.5 Hyperlipidemia, unspecified; F19.10 Other psychoactive substance abuse, uncomplicated; D69.6 Thrombocytopenia, unspecified
CPT/HCPCS: 0241U-QW; 36415; 71045-TC-FY; 74177-TC; 74330-TC; 76705-TC; 80053; 80307; 81003; 82140; 82150; 83605; 83690; 84484; 85025; 85610; 85730; 86803; 87040; 87086; 87186; 87389; 93005; 93010; 99285-25; J0131